=== PATIENT | female | born 1970 | race Caucasian/White ===

== ENCOUNTER 2016-11-22 09:50 | Inpatient (IN) | payer BC, OTHER ==
[~2016-11-22] VITALS: Ht 157.5 cm; Wt 58.1 kg
--- NOTE | 2016-11-22 09:55 | NUR ---
AAOX3, BIB FAMILY C/O MIDSTERNAL CP, SOB SINCE LAST NIGHT, WORSE DURING INHALATION. SKIN IS WARM AND DRY. RESP IS EVEN AND UNLABORED WITH NAD NOTED. PLACED ON THE MONITOR AND HOSPITAL GOWN. DR OWEN AT BS FOR EVAL.
--- NOTE | 2016-11-22 10:32 | NUR ---
DUE MEDICATIONS GIVEN ORDERED
[2016-11-22 10:48] LABS: EOSINOPHILS % (AUTO) 0.3 % (0.0-6.0); HEMATOCRIT 35 % (33-45); HEMOGLOBIN 11.3 g/dL (11.5-14.8); LYMPHOCYTES # (AUTO) 1.4 /CMM (0.8-4.8); LYMPHOCYTES % (AUTO) 19.7 % (20.0-44.0); MEAN CORPUSCULAR HEMOGLOBIN 28 PG (26.0-33.0); MEAN CORPUSCULAR HGB CONC 33 g/dl (31.0-36.0); MEAN CORPUSCULAR VOLUME 84 fL (82-100); MONOCYTES # (AUTO) 0.8 /CMM (0.1-1.30); MONOCYTES % (AUTO) 10.9 % (2.0-12.0); NEUTROPHILS # (AUTO) 4.9 /CMM (1.8-8.9); NEUTROPHILS % (AUTO) 69.1 % (43.0-81.0); PLATELET COUNT (AUTO) 166 /CMM (150-450); RED BLOOD CELL COUNT(AUTO) 4.12 MIL/uL (4.0-5.2); WHITE BLOOD COUNT (AUTO) 7.1 K/uL (4.3-11.0)
[2016-11-22 10:57] LABS: CALCIUM, SERUM 8.4 mg/dL (8.5-10.1); CARBON DIOXIDE 27 mmol/L (21-32); CHLORIDE 101 mmol/L (98-107); CREATININE 0.4 mg/dL (0.6-1.3); GLUCOSE 101 mg/dL (74-106); POTASSIUM 4.1 mmol/L (3.5-5.1); SODIUM SERUM 136 mmol/L (136-145); UREA NITROGEN, BLOOD 12 mg/dL (7-18)
[2016-11-22 11:09] LABS: ALANINE AMINOTRANSFERASE 25 U/L (12-78); ALBUMIN 3.1 g/dL (3.4-5.0); ALKALINE PHOSPHATASE 216 U/L (46-116); ASPARTATE AMINOTRANSFERASE 19 U/L (15-37); B-TYPE NATRIURETIC PEPTIDE 1657 PG/ML (0-125); BILIRUBIN,DIRECT 0.2 mg/dL (0.0-0.2); BILIRUBIN,TOTAL 2.6 mg/dL (0.2-1.0); TOTAL PROTEIN, SERUM 6.5 g/dL (6.4-8.2)
[2016-11-22 11:10] LABS: LIPASE 54 U/L (73-393)
[2016-11-22 11:11] LABS: TROPONIN I < 0.017 ng/mL (0.00-0.056)
[2016-11-22 11:21] LABS: D-DIMER 0.72 mg/L(FEU (0.17-0.50); INR 1.06 (0.87-1.13); PROTHROMBIN TIME 11.4 SECS (9.5-12.7)
[2016-11-22] MEDS ORDERED: RIVA10TA PO (11:24)
[2016-11-22 11:31] LABS: THYROID STIMULATING HORMONE < 0.007 uIU/mL (0.358-3.74)
--- NOTE | 2016-11-22 13:03 | NUR ---
SANDY EMMANUELLE AT
--- NOTE | 2016-11-22 13:09 | NUR ---
REPORT GIVEN TO ASHLEIGH URBAN FOR AIDEN
--- NOTE | 2016-11-22 13:18 | NUR ---
PATIENT WAS TRANSPORTED TO [facility]. [facility]
--- NOTE | 2016-11-22 13:30 | NUR ---
RN NOTE RN RECEIVED PATIENT IN STABLE CONDITION NO COMPLAINS OF CHEST PAIN AT THIS TIME HOWEVER PATIENT STATES PRESSURE IN MEDIAL CHEST AT THIS TIME. PATIENT AMBULATES TO THE BED FROM [facility] WITHOUT DISTRESS, PATIENT PLACED ON TELE MONITORING , HR ELEVATED AND IRRGULAR A-FIB. PATIENT WILL CONTINUE TO BE MONITORED
--- NOTE | 2016-11-22 15:37 | NUR ---
PATIENT HR SUSTAINING AFIB 130,C/O CHEST PAIN,PRN MORPHINE GIVEN IVP,LOPRESSOR IVP GIVEN,DR. BURGOS NOTIFIED AND UPGRADED PATIENT TO BETHANY.WILL CONTINUE TO MONITOR.SBP 119 .
[2016-11-22 15:41] VITALS: BP 119/63
--- NOTE | 2016-11-22 16:34 | NUR ---
RN NOTE GIVEN ALL ORDERED MEDICATION PER MD ALESHIA MD SPOKE WITH PATIENT , MD ALSO STATES CARDIAC WILL CONTINUE TO FOLLOW THE PATIENT. PATIENT STATES PAIN HAS SUBSIDED AND SHE IS NOW RESTING COMFORTABLE. PARA PROFESSIONAL WILL CONTINUE TO FOLLOW
--- NOTE | 2016-11-22 18:18 | NUR ---
RN NOTE RN SPOKE WITH MD NARVAEZ IN REGARDS TO PATIENT A-FIB AND UNCONTROLLED HR , MD NARVAEZ ADVISED TO START PATIENT ON METOPROLOL( WHICH PATIENT HAS BEGAN PER DR. MONK ORDERS) AND CONTINUE TO MONITOR, RN ADVISED MD THAT PATIENT STATES SHE STOPPED TAKING MEDICATION A"COUPLE OF MONTHS AGO DUE TO HER NOT KNOWING IT WAS SOMETHING SHE WOULD NEED TO CONTINUE TAKING" NURSING STAFF ADVISED TO CONTINUE TO MONITOR.
--- NOTE | 2016-11-22 18:28 | NUR ---
BETHANY RN CLOSING NOTE PATIENT HAS BEEN CONTINUOUSLY READING A-FIB THROUGHOUT THE SHIFT CHARGE NURSE NOTIFIED , DR. MONK NOTIFIED AND ALSO DR. NARVAEZ NOTIFIED , PATIENT HOWEVER NO LONGER EXPERIENCING CHEST PAIN AT THIS TIME , HR STILL ELEVATED , PATIENT B/P STABLE AND WITH IN NORMAL LIMITS. PATIENT UP EATING DINNER IN THE BED AND STATES THAT HER DAUGHTER WILL BE COMING TO BRING ALL OF HER HOME MEDICATION AT 8-M , CONTINUED CARE WILL BE GIVEN AND CONTINUED MONITORING IV L AC SL. NO ISSUES PRESENT. RN WILL ENDORSED CARE TO THE NEXT SHIFT
--- NOTE | 2016-11-22 19:30 | NUR ---
RN INITIAL NOTES RECEIVED PATIENT IN BED, AWAKE, ALERT AND ORIENTED X4. BREATHING EVEN AND NONLABORED, ON 2L VIA NC, FREE FROM ANY S/S OF RESPIRATORY DISTRESS. PATIENT ON TELEMETRY MONITORING, REVEALING UNCONTROLLED AFIB, RANGING FROM 95-145 BPM. LEFT AC #20 PATENT AND INTACT, FLUSHED WITH NS, FREE FROM ANY S/S OF INFILTRATION OR PHLEBITIS. PLAN OF CARE DISCUSSED WITH THE PATIENT, WHO VERBALIZES UNDERSTANDING AT THIS TIME, BUT MAY NEED REINFORCEMENT TEACHING. WILL PROVIDE TEACHING NEEDED THROUGHOUT SHIFT. CALL LIGHT LEFT WITHIN EASY REACH, BED IN LOWEST AND LOCKED POSITION. WILL CONTINUE TO CLOSELY MONITOR
[2016-11-22 20:00] VITALS: BP 106/79
--- NOTE | 2016-11-22 20:00 | NUR ---
RN NOTES PATIENT TEACHING. EXPLAINED IN DETAIL REGARDING THE NEED TO ACCURATELY MEASURE URINE OUTPUT. PATIENT INSTRUCTED TO URINATE IN HAT TO COLLECT URINE. PATIENT VERBALIZES UNDERSTANDING OF VERBAL DIRECTIONS/INSTRUCTIONS
--- NOTE | 2016-11-22 21:00 | NUR ---
RN NOTES DURING HOURLY ROUNDING, PATIENT STATES "I FORGOT TO PEE IN THE THING (MEASURING DEVICE)." TEACHING RENDERED REGARDING NEED FOR ADEQUATE INTAKE AND OUTPUT. PATIENT VERBALIZES UNDERSTANDING.
--- NOTE | 2016-11-22 22:03 | NUR ---
RN NOTES PATIENT VERBALIZING FEELINGS OF ANXIETY. PATIENT STATES "IM NERVOUS BEING IN THE HOSPITAL AND EVERYTHING THAT IS GOING ON." ENCOURAGED PATIENT TO VERBALIZE FEELINGS. PATIENT TEACHING RENDERED REGARDING HOW TO USE DEEP BREATHING TECHNIQUES TO HELP DECREASE ANXIETY. ALSO REASSURED PATIENT THAT SHE IS IN A SAFE PLACE. XANAX ADMINISTERED ORDERED. WILL CONTINUE TO CLOSELY MONITOR
[2016-11-23] VITALS: BP 107/66
[2016-11-23 04:00] VITALS: BP 123/62
--- NOTE | 2016-11-23 06:39 | NUR ---
RN CLOSING NOTES PATIENT SLEEPING IN BED AT THIS TIME. ON TELEMETRY MONITORING, PATIENT CONTINUES TO READ AFIB, UNCONTROLLED RATE, 105-130BPM. WILL ENDORSE THE PATIENT TO THE AM SHIFT NURSE FOR AIDEN
[2016-11-23 06:52] LABS: CALCIUM, SERUM 8.5 mg/dL (8.5-10.1); CREATININE 0.3 mg/dL (0.6-1.3); MONOCYTES # (AUTO) 1.2 /CMM (0.1-1.30); PLATELET COUNT (AUTO) 160 /CMM (150-450)
[2016-11-23 06:54] LABS: BASOPHILS % (AUTO) 0.3 % (0.0-2.0); EOSINOPHILS % (AUTO) 0.5 % (0.0-6.0); HEMATOCRIT 35 % (33-45); HEMOGLOBIN 11.4 g/dL (11.5-14.8); LYMPHOCYTES # (AUTO) 2.6 /CMM (0.8-4.8); LYMPHOCYTES % (AUTO) 28.5 % (20.0-44.0); MEAN CORPUSCULAR HEMOGLOBIN 27 PG (26.0-33.0); MEAN CORPUSCULAR HGB CONC 33 g/dl (31.0-36.0); MEAN CORPUSCULAR VOLUME 84 fL (82-100); MONOCYTES % (AUTO) 12.8 % (2.0-12.0); NEUTROPHILS # (AUTO) 5.2 /CMM (1.8-8.9); NEUTROPHILS % (AUTO) 57.9 % (43.0-81.0); RDW COEFFICIENT OF VARIATION 13.5 (11.5-15.0); RED BLOOD CELL COUNT(AUTO) 4.18 MIL/uL (4.0-5.2)
[2016-11-23] MEDS ORDERED: METO50TA3 PO (06:58)
[2016-11-23] MEDS ORDERED: METH5TAB6 PO (06:58)
[2016-11-23 06:59] LABS: ALBUMIN 2.8 g/dL (3.4-5.0); BILIRUBIN,DIRECT 0.4 mg/dL (0.0-0.2); BILIRUBIN,TOTAL 3.1 mg/dL (0.2-1.0); MAGNESIUM 1.7 mg/dL (1.8-2.4); PHOSPHORUS 3.4 mg/dL (2.5-4.9); TOTAL PROTEIN, SERUM 6.4 g/dL (6.4-8.2)
[2016-11-23 08:00] VITALS: BP 140/62
--- NOTE | 2016-11-23 11:15 | NUR ---
RN INITIAL NOTES RECEIVED PATIENT IN BED AT 840 AM REPORT GIVEN VIA RN JOB , PT SLEEPING BUT UPON INTRODUCTION PATIENT IS ALERT AND ORIENTED X4. BREATHING EVEN AND NONLABORED, ON ROOM AIR BUT HAS NC OPTIONAL FOR SOB , FREE FROM ANY S/S OF RESPIRATORY DISTRESS. PATIENT ON TELEMETRY MONITORING, CURRENTLY READING AFIB, RANGING FROM 110-135 BPM. PT HAS LEFT AC #20 G IV . IV IS PATENT AND INTACT, FLUSHED WITH NS, FREE FROM ANY S/S OF INFILTRATION OR SWELLING. PLAN OF CARE DISCUSSED WITH THE PATIENT,PATIENT VERBALIZES UNDERSTANDING AT THIS TIME, BUT MAY NEED REINFORCEMENT TEACHING DUE TO HER SEEMINGLY SLEEP APPEARANCE . RN WILL PROVIDE TEACHING THROUGHOUT THE DAY . PTS CALL LIGHT LEFT WITHIN EASY REACH, BED IN LOWEST AND LOCKED POSITION. 3 SIDE RAILS UP . NURSING STAFF WILL CONTINUE TO CLOSELY MONITOR
[2016-11-23 12:00] VITALS: BP 111/60
[2016-11-23 16:00] VITALS: BP 131/66
--- NOTE | 2016-11-23 18:24 | NUR ---
RN NOTE RN HAD DIFFICULTY WITH THE COMPUTER ON WHEELS AND MAKEUP ARTIST ASHLEY PLACED PLACED A SERVICE CALL IN FOR THE AM . PAIN MEDICATION ADMINISTERED PER PATIENT REQUEST . CHARGE NURSE NOTIFIED AND ACKNOWLEDGED ISSUE WITH THE SCANNING OF MEDS PAIN MEDICATION VERIFIED. VIA THE 5 RIGHTS FOR DRUG ADMINISTRATION. PATIENT STATED PAIN RELIEVED WHEN GIVEN MORPHINE 4MG. RN WILL CONTINUE TO FOLLOW
--- NOTE | 2016-11-23 19:30 | NUR ---
RN INITIAL NOTES RECEIVED PT AWAKE ON BED, A/O X4. ON ROOM AIR WITH NO S/S OF RESP DISTRESS. CURRENTLY UNCONTROLLED AFIB ON THE MONITOR, HR 150'S. PT COMPLAINS OF LEFT SHOULDER PAIN. PT IS CONTINENT AND AMBULATORY ON A STEADY GAIT. LEFT AC 20G WITH D5NS @ 125MLS/HR, FLUSHED AND PATENT, NO S/S OF INFILTRATION/INFECTION, DRESSING CDI. BED LOW AND LOCKED, SIDERAILS UP. WILL MONITOR
--- NOTE | 2016-11-23 19:57 | NUR ---
RN CLOSING NOTES PATIENT SLEEPING IN BED AT THIS TIME. PT IS STILL ON TELEMETRY MONITORING, PATIENT READING UNCONTROLLED AFIB, RATE, 90-155BPM. THROUGHOUT THE DAY PATIENT REQUESTED PAIN MEDICATION RN ENDORSED THE PATIENT TO THE PM SHIFT NURSE FOR CONTINUATION OF CARE. PATIENT B/P STABLE AND PATIENT VERBLIZED DECREASED IN CHEST PAIN
[2016-11-23 20:00] VITALS: BP 156/85
--- NOTE | 2016-11-23 23:12 | NUR ---
RN NOTES PULLED WRONG MEDICATION(METOPROLOL SUCCINATE) FROM [facility] [employer] [facility]. ASKED PATIENT ASSISTANT FOR OVERRIDE TO GET METOPROLOL TARTRATE
[2016-11-24] VITALS: BP 124/72
--- NOTE | 2016-11-24 | NUR ---
RN NOTES CALLED ON-CALL DR LEDESMA TO NOTIFY HIM THAT PATIENT'S HR IS SUSTAINING @ 160-170'S. CURRENT BLOOD PRESSURES OF 131/71 AND 124/70. LOPRESSOR 5MG IVP HAD BEEN GIVEN BUT NO CHANGE IN HR HAS BEEN SEEN. MD ORDERED FOR 0.5MG DIGOXIN IVP TO BE GIVEN, NOW. IF HR IS STILL > 110, MAY GIVE ANOTHER DOSE OF 0.5MG DIGOXIN 6HRS AFTER THE FIRST DOSE. WILL INITIATE ORDER
[2016-11-24 04:00] VITALS: BP 122/78
--- NOTE | 2016-11-24 05:31 | NUR ---
RN NOTES DID NOT ADMINISTER 2ND DOSE OF DIGOXIN 0.5MG IV BECAUSE CURRENT HR IS 96.
--- NOTE | 2016-11-24 06:20 | NUR ---
RN CLOSING NOTES PT REMAINS STABLE OF THE MOMENT. CURRENTLY STILL AFIB ON THE MONITOR, BUT WITH HR 80-110'S. ALL DUE MEDS GIVEN, AM CARE PROVIDED. WILL ENDORSE AIDEN TO AM RN
[2016-11-24 07:41] LABS: APPEARANCE,URINE CLEAR (CLEAR); BILIRUBIN,URINE NEGATIVE (NEGATIVE); BLOOD, URINE NEGATIVE Ery/uL (NEGATIVE); COLOR,URINE YELLOW (YELLOW); KETONES,URINE NEGATIVE (NEGATIVE); LEUKOCYTE ESTERASE ,URINE TRACE (NEGATIVE); NITRITE, URINE NEGATIVE (NEGATIVE); PROTEIN,URINE NEGATIVE (NEGATIVE); UGLUCOSE NEGATIVE (NEGATIVE); UROBILINOGEN,URINE 0.2 EU/dL (0.2)
[2016-11-24 08:00] VITALS: BP 110/65
[2016-11-24 08:25] LABS: BACTERIA,URINE Few /HPF (None Seen); MUCUS,URINE Few /LPF (None Seen); RBC,URINE 0-2 /HPF (0-2)
[2016-11-24 08:38] LABS: EOSINOPHILS # (AUTO) 0.1 /CMM (0.0-0.7); EOSINOPHILS % (AUTO) 0.9 % (0.0-6.0); HEMATOCRIT 32 % (33-45); HEMOGLOBIN 10.5 g/dL (11.5-14.8); LYMPHOCYTES # (AUTO) 0.9 /CMM (0.8-4.8); LYMPHOCYTES % (AUTO) 15.6 % (20.0-44.0); MEAN CORPUSCULAR HEMOGLOBIN 28 PG (26.0-33.0); MEAN CORPUSCULAR HGB CONC 33 g/dl (31.0-36.0); MEAN CORPUSCULAR VOLUME 84 fL (82-100); MONOCYTES # (AUTO) 0.9 /CMM (0.1-1.30); NEUTROPHILS # (AUTO) 3.9 /CMM (1.8-8.9); NEUTROPHILS % (AUTO) 67.5 % (43.0-81.0); PLATELET COUNT (AUTO) 135 /CMM (150-450); RDW COEFFICIENT OF VARIATION 13.6 (11.5-15.0); RED BLOOD CELL COUNT(AUTO) 3.81 MIL/uL (4.0-5.2); WHITE BLOOD COUNT (AUTO) 5.8 K/uL (4.3-11.0)
[2016-11-24 09:10] LABS: CALCIUM, SERUM 8.4 mg/dL (8.5-10.1); CREATININE 0.4 mg/dL (0.6-1.3); POTASSIUM 3.5 mmol/L (3.5-5.1)
[2016-11-24 09:16] LABS: ALBUMIN 2.2 g/dL (3.4-5.0); BILIRUBIN,TOTAL 2.9 mg/dL (0.2-1.0); MAGNESIUM 1.8 mg/dL (1.8-2.4); TOTAL PROTEIN, SERUM 5.9 g/dL (6.4-8.2)
[2016-11-24 09:37] LABS: EOSINOPHILS % (MANUAL) 1 % (0-4); LYMPHOCYTES % (MANUAL) 15 % (16-48); MONOCYTES % (MANUAL) 9 % (0-11.0); NEUTROPHILS % (MANUAL) 75 (42-76)
[2016-11-24 12:00] VITALS: BP 131/81
[2016-11-24 16:00] VITALS: BP 125/83
--- NOTE | 2016-11-24 18:45 | NUR ---
RN NOTES- PT C/O ACHING BACK PAIN, PREFERS MORPHINE 4 MG IV INSTEAD OF NORCO PO. WILL ADMINISTER MED. WILL CONTINUE TO MONITOR.
[2016-11-24 20:00] VITALS: BP_SYST 120; BP_SYST 124; BP_DIAS 48; BP_DIAS 65
--- NOTE | 2016-11-24 20:21 | NUR ---
RN NOTES. INITIAL ASSESSMENT. RECEIVED THE PT REST ON THE BED. AWAKE, ALERT, FOLLOW COMMANDS. R[employer]ER [employer] SHOWING AFIB. RATE IS 110- 115 AT THIS TIME. OXYGEN 2L VIA NASAL CANNULA. SAT 98%. NO ACUTE DISTRESS NOTED. PT DENIES CHEST PAIN AT THIS TIME. IV RT FORE ARM 20G INTACT. IVF D5NS 125ML/H. IV SITE CLEAN AND DRY. NO REDNESS OR INFILTRATION NOTED. HOB ELEVATED. TURN AND REPOSITION PT INDEPENDENT.WILL CONTINUE TO MONITOR VITALS.
--- NOTE | 2016-11-24 22:32 | NUR ---
RN NOTE. PT HAS LOWER BACK PAIN SCALE 4/10. NORCO 5 -325 PO GIVEN PER MD ORDERED.
[2016-11-25] VITALS: BP_SYST 112; BP_SYST 115; BP_DIAS 55; BP_DIAS 67
[2016-11-25 04:00] VITALS: BP 110/60
[2016-11-25 06:36] LABS: BASOPHILS % (AUTO) 0.5 % (0.0-2.0); EOSINOPHILS # (AUTO) 0.2 /CMM (0.0-0.7); EOSINOPHILS % (AUTO) 3.7 % (0.0-6.0); HEMATOCRIT 30 % (33-45); HEMOGLOBIN 9.9 g/dL (11.5-14.8); LYMPHOCYTES % (AUTO) 36.4 % (20.0-44.0); MEAN CORPUSCULAR HEMOGLOBIN 28 PG (26.0-33.0); MEAN CORPUSCULAR HGB CONC 33 g/dl (31.0-36.0); MEAN CORPUSCULAR VOLUME 85 fL (82-100); MONOCYTES # (AUTO) 0.8 /CMM (0.1-1.30); MONOCYTES % (AUTO) 14.3 % (2.0-12.0); NEUTROPHILS # (AUTO) 2.4 /CMM (1.8-8.9); NEUTROPHILS % (AUTO) 45.1 % (43.0-81.0); PLATELET COUNT (AUTO) 142 /CMM (150-450); RDW COEFFICIENT OF VARIATION 13.4 (11.5-15.0); RED BLOOD CELL COUNT(AUTO) 3.49 MIL/uL (4.0-5.2); WHITE BLOOD COUNT (AUTO) 5.4 K/uL (4.3-11.0)
[2016-11-25 06:53] LABS: ALBUMIN 1.9 g/dL (3.4-5.0); BILIRUBIN,TOTAL 1.8 mg/dL (0.2-1.0); CALCIUM, SERUM 8.1 mg/dL (8.5-10.1); CREATININE 0.3 mg/dL (0.6-1.3); MAGNESIUM 1.7 mg/dL (1.8-2.4); PHOSPHORUS 3.2 mg/dL (2.5-4.9); POTASSIUM 3.6 mmol/L (3.5-5.1); TOTAL PROTEIN, SERUM 5.3 g/dL (6.4-8.2)
--- NOTE | 2016-11-25 07:10 | NUR ---
BETHANY RN NOTES RECEIVED PATIENT AOX4 , DENIES SOB AND DISCOMFORT AT THIS TIME , SPO2 OF 98% VIA RA , AFIB 110 ON TELE MONITOR . R FA # 20 PATENT AND INTACT WITH D5NS @ 125ML/HR INFUSING WELL , ALL NEEDS ATTENDED , BED ON LOW AND LOCKED POSITION , SIDE RAILS X2 ,CALL LIGHT WITHIN REACH , HON @ 35 , WILL CONTINUE TO MONITOR .
[2016-11-25 09:00] VITALS: BP 127/61
[2016-11-25 12:00] VITALS: BP 133/67
[2016-11-25 16:00] VITALS: BP 132/77
--- NOTE | 2016-11-25 19:10 | NUR ---
BETHANY RN OPENING NOTES RECEIVED REPORT FROM AM RN. PATIENT A/A/O X3-4, ABLE TO MAKE NEEDS KNOWN. BREATHING EVEN AND UNLABORED, ON O2 2L VIA NC, TOLERATING WELL. DENIES SOB OR DIFFICULTY BREATHING. ON TELE A-FIB, DENIES CHEST PAIN OR DISCOMFORT. RIGHT FOREARM IV #20 INTACT AND PATENT W/ DRESSING CDI, SALINE LOCK. DENIES ANY PAIN OR DISCOMFORT @ THIS TIME. SAFETY MEASURES IN PLACE W/ SIDE RAILS UP, BED LOCKED IN LOWEST POSITION, CALL LIGHT WITHIN REACH. WILL CONTINUE TO MONITOR.
--- NOTE | 2016-11-25 19:12 | NUR ---
BETHANY RN NOTES STOOL SAMPLE OBTAINED , LABELED AND SENT TO LAB.
[2016-11-25 20:00] VITALS: BP 122/57
[2016-11-26] VITALS: BP 115/66
[2016-11-26 04:00] VITALS: BP 114/62
[2016-11-26 06:52] LABS: BASOPHILS % (AUTO) 0.2 % (0.0-2.0); EOSINOPHILS # (AUTO) 0.3 /CMM (0.0-0.7); EOSINOPHILS % (AUTO) 6.2 % (0.0-6.0); HEMATOCRIT 29 % (33-45); HEMOGLOBIN 9.4 g/dL (11.5-14.8); LYMPHOCYTES # (AUTO) 1.7 /CMM (0.8-4.8); LYMPHOCYTES % (AUTO) 40.8 % (20.0-44.0); MEAN CORPUSCULAR HEMOGLOBIN 28 PG (26.0-33.0); MEAN CORPUSCULAR HGB CONC 33 g/dl (31.0-36.0); MEAN CORPUSCULAR VOLUME 84 fL (82-100); MONOCYTES # (AUTO) 0.5 /CMM (0.1-1.30); MONOCYTES % (AUTO) 12.8 % (2.0-12.0); NEUTROPHILS # (AUTO) 1.7 /CMM (1.8-8.9); PLATELET COUNT (AUTO) 153 /CMM (150-450); RDW COEFFICIENT OF VARIATION 13.1 (11.5-15.0); WHITE BLOOD COUNT (AUTO) 4.2 K/uL (4.3-11.0)
[2016-11-26 07:38] LABS: CALCIUM, SERUM 8.1 mg/dL (8.5-10.1); CREATININE 0.3 mg/dL (0.6-1.3); MAGNESIUM 1.6 mg/dL (1.8-2.4); PHOSPHORUS 4.4 mg/dL (2.5-4.9); POTASSIUM 3.8 mmol/L (3.5-5.1)
[2016-11-26 08:00] VITALS: BP 126/53
--- NOTE | 2016-11-26 09:00 | NUR ---
DR. SOLANGE ARDON PT FOR DISCHARGE WITH INSTRUCTIONS TO FOLLOW UP IN ONE WEEK WITH HIS OFFICE FOR CONTINUITY OF CARE.
[2016-11-26] MEDS ORDERED: PROP40TA7 PO (10:24)
[2016-11-26] MEDS ORDERED: METH5TAB70 PO (10:24)
[2016-11-26] MEDS ORDERED: [UNRECOGNIZED DRUG - CODE] PO (10:24)
[2016-11-26 12:21] VITALS: BP 129/78
--- NOTE | 2016-11-26 13:40 | NUR ---
SHARAN KENT WRITES RX FOR PT'S DISCHARGE. DISCHARGE INSTRUCTIONS GIVEN TO THE PATIENT INCLUDING MEDICATION EDUCATION AND ITS IMPORTANCE TO ADHERE TO THE MEDICATIONS ESPECIALLY XARELTO. DISCHARGE INSTRUCTIONS GIVEN TO THE PT INCLUDING DR. VAUGHAN OFFICE NUMBER AND LOCATION (HIGHLIGHTED IN THE PAPERWORK). I EXPLAINED TO HER PROTOCOLS REGARDING SKIN ASSESSMENT PICTURES ON DISCHARGE BUT SHE REFUSED STATING THAT SHE DOES NOT WANT ANYMORE PICTURES TAKEN. HER IS COMING AROUND 5PM AND WILL TAKE HER HOME, WILL PROVIDE DISCHARGE EDUCATION FOR HER WELL. WRITTEN PRESCRIPTIONS GIVEN TO HER ON THE FRONT PAGE OF HER DISCHARGE PAPERWORK.
--- NOTE | 2016-11-26 17:21 | NUR ---
DC IVF CATHETER INTACT. REMOVED ID BANDS, PT STILL REFUSED FOR SKIN ASSESSMENT PICTURES, SHE STATES SHE ALREADY GOT DRESSED AND IS READY TO GO. WENT OVER DISCHARGE PAPERWORK WITH THE WHO IS AT BEDSIDE AND IWLL TAKE HER HOME. INSTRUCTED TO FOLLOW UP WITH DR. VAUGHAN OFFICE IN ONE WEEK. NUMBER HIGHLIGHTED IN PAPERWORK SEE PREVIOUS NOTE.
== END 2016-11-26 17:00 | disposition home or self-care (01) | DRG 308 ==
LOC: ER 09:51 → TELE1 12:36 → TELE-TD 15:38 → TELE1 11-23 08:35 → TELE-TD 11-24 12:35 → MEDSG1 11-26 09:43
PROVIDERS: ADMIT Internal Medicine; ATTEND Internal Medicine
DX: I48.91 Unspecified atrial fibrillation (principal); E05.91 Thyrotoxicosis, unspecified with thyrotoxic crisis or storm; E44.1 Mild protein-calorie malnutrition; E83.42 Hypomagnesemia; I95.9 Hypotension, unspecified; E78.5 Hyperlipidemia, unspecified; J45.909 Unspecified asthma, uncomplicated; K21.9 Gastro-esophageal reflux disease without esophagitis; E80.6 Other disorders of bilirubin metabolism; R07.9 Chest pain, unspecified; Z68.23 Body mass index [BMI] 23.0-23.9, adult; R07.81 Pleurodynia
CPT/HCPCS: 36415; 71010-TC; 76705-TC; 80048-TC; 80053-TC; 80061-TC; 80076-TC; 81000-TC; 82272-TC; 82728-TC; 83540-TC; 83605-TC; 83690-TC; 83735-TC; 83880; 84100-TC; 84439-TC; 84443-TC; 84480; 84484-TC; 84703-TC; 85025-TC; 85378-TC; 85730-TC; 87040-TC; 87081-TC; 87086-TC; 93307-TC; A4606; C9113; J1160; J1650; J1800; J2270; J2405; J3475; J3490; J7030; J7042; J7050; J7070; Z7610

== ENCOUNTER 2019-02-23 01:44 | Inpatient (IN) | payer BC, MEDICAID ==
[~2019-02-23] VITALS: Ht 157.5 cm; Wt 54.4 kg
[2019-02-23] VITALS (11 sets, daily range): BP systolic 92–125; BP diastolic 53–66
[~2019-02-23 01:44] MED LIST: METH5TAB70 PO; PROP40TA7 PO; [UNRECOGNIZED DRUG - CODE] PO
--- NOTE | 2019-02-23 01:45 | NUR ---
Cesar damon in [facility] - 02/23/19 at 0209 by TARUN FAXED CLINICAL INFORMATION TO GIAN RITTER WAITING FOR CALL BACK WITH TRANSFER INFORMATION
--- NOTE | 2019-02-23 02:04 | NUR ---
BIBSELF C/O LOWER ABDOMINAL PAIN X2 DAYS. -FEVER, +NAUSEA/VOMITTING, LAS BM IN AM, LOOSE STOOL. TO ER BED 3 VSS.
[2019-02-23 02:24] LABS: BASOPHILS % (AUTO) 0.1 % (0.0-2.0); HEMATOCRIT 37 % (33-45); HEMOGLOBIN 12.3 g/dL (11.5-14.8); LYMPHOCYTES # (AUTO) 0.7 /CMM (0.8-4.8); LYMPHOCYTES % (AUTO) 5.4 % (20.0-44.0); MEAN CORPUSCULAR HGB CONC 33 g/dl (31.0-36.0); MEAN CORPUSCULAR VOLUME 85 fL (82-100); MONOCYTES % (AUTO) 7.7 % (2.0-12.0); NEUTROPHILS % (AUTO) 86.8 % (43.0-81.0); PLATELET COUNT (AUTO) 203 /CMM (150-450); RED BLOOD CELL COUNT(AUTO) 4.41 MIL/uL (4.0-5.2); WHITE BLOOD COUNT (AUTO) 12.6 K/uL (4.3-11.0)
[2019-02-23 02:29] LABS: CALCIUM, SERUM 8.9 mg/dL (8.5-10.1); CARBON DIOXIDE 28 mmol/L (21-32); CHLORIDE 101 mmol/L (98-107); CREATININE 0.6 mg/dL (0.6-1.3); GLUCOSE 133 mg/dL (74-106); POTASSIUM 3.8 mmol/L (3.5-5.1); SODIUM SERUM 139 mmol/L (136-145); UREA NITROGEN, BLOOD 10 mg/dL (7-18)
[2019-02-23] MEDS ORDERED: IV NS 0.9% 1,000 ML BAG IV ONE (02:30)
[2019-02-23] MEDS ORDERED: MORPHINE SULFATE INJ 2 MG/ML DISP.SYRIN IV ONE ×2 (02:30→03:30)
[2019-02-23] MEDS ORDERED: ONDANSETRON HCL/PF 4 MG/2 ML VIAL IVP ONE (02:30)
[2019-02-23 02:35] LABS: ALANINE AMINOTRANSFERASE 17 U/L (12-78); ALBUMIN 3.4 g/dL (3.4-5.0); ALKALINE PHOSPHATASE 150 U/L (46-116); ASPARTATE AMINOTRANSFERASE 10 U/L (15-37); BILIRUBIN,DIRECT 0.3 mg/dL (0.0-0.2); BILIRUBIN,TOTAL 1.7 mg/dL (0.2-1.0); LIPASE 59 U/L (73-393); TOTAL PROTEIN, SERUM 7.3 g/dL (6.4-8.2)
[2019-02-23] MEDS ORDERED: MORPHINE SULFATE INJ 4 MG/ML DISP.SYRIN ONE (03:24)
[2019-02-23] MEDS ORDERED: PIPERACILLIN /TAZOBACTAM 3.375 G in IV D5W 50 ML IV ONE (03:30)
[2019-02-23] MEDS ORDERED: PIPERACILLIN /TAZOBACTAM 3.375 G VIAL IV ONE (04:02)
--- NOTE | 2019-02-23 04:58 | NUR ---
ATTEMPTED TO CONTACT DR. MCKNIGHT, LEFT MESSAGE
--- NOTE | 2019-02-23 05:03 | NUR ---
PT IN BED, SLEEPING, NO APPARENT PAIN OR DISCOMFORT, WILL CONTINUE TO MONITOR
--- NOTE | 2019-02-23 05:22 | NUR ---
BED 312-2 MS
[2019-02-23 05:36] LABS: APPEARANCE,URINE Clear (CLEAR); BILIRUBIN,URINE Negative (NEGATIVE); BLOOD, URINE Trace-intact Ery/uL (NEGATIVE); COLOR,URINE Yellow (YELLOW); KETONES,URINE Negative (NEGATIVE); LEUKOCYTE ESTERASE ,URINE Negative (NEGATIVE); NITRITE, URINE Negative (NEGATIVE); PH,URINE 6.5 (5.0-8.0); PROTEIN,URINE Negative (NEGATIVE); UGLUCOSE Negative (NEGATIVE); UROBILINOGEN,URINE 0.2 EU/dL (0.2)
[2019-02-23 05:47] LABS: BACTERIA,URINE Few /HPF (None Seen); SQUAMOUS EPITHELIAL CELL,UR Few /HPF (None Seen)
[2019-02-23] MEDS ORDERED: MAG HYDROX/AL HYDROX/SIMETH 30 ML UDC PO PRN (06:00)
[2019-02-23] MEDS ORDERED: ONDANSETRON HCL/PF 4 MG/2 ML VIAL IVP PRN (06:00)
[2019-02-23] MEDS ORDERED: MORPHINE SULFATE INJ 2 MG/ML DISP.SYRIN IV PRN (06:00)
[2019-02-23] MEDS ORDERED: MAGNESIUM HYDROXIDE 30 ML UDC PO PRN (06:00)
[2019-02-23] MEDS ORDERED: HYDROCODONE/APAP 5/325MG 1 EACH TABLET PO PRN (06:00)
[2019-02-23] MEDS ORDERED: Z GUARD REMEDY 2 OZ OINT TP PRN (06:00)
--- NOTE | 2019-02-23 06:18 | NUR ---
transported pt to room 312-2
--- NOTE | 2019-02-23 06:20 | NUR ---
RN medsurg admission notes Received Pt from ER nurse ASHLEIGH Rodriguez. Pt arrived at the unit by a gurney with ACLS protocol. Pt is alert and orientedX4. Respiration is normal. No SOB. No S/S of distress noted. IV sites at LAC#20 is clean, intact, patent and flush without resistance. Admission orders received from Dr. Morgan. Skin assessment is done and performed. Skin is intact. Pt's belonging was checked by HO Funes. Reorient Pt to the room and the use of call light. Instructed to call. Safety precautions is maintained. Bed at low position, brakes locked, side rails upX3 and call light is within reach. Will endorse to morning nurse for AIDEN.
--- NOTE | 2019-02-23 06:48 | NUR ---
RN brandon notes Pt is complaining of pain in her abdomen. Administered morphine sulfate inj 2 mg/1 ml IV push as ordered for pain on the abdomen. Instructed to call. VS is stable. Safety precautions is maintained. Will continue to monitor.
--- NOTE | 2019-02-23 06:49 | NUR ---
RN medsur notes Dr. Rushing at the bedside.
--- NOTE | 2019-02-23 06:50 | NUR ---
RN medsurg closing notes Pt is resting in bed comfortably. Respiration is normal. No SOB. No S/S of distress noted. IV sites at LAC is clean, intact, patent and infusing well NS @ 100ml/hr. kept Pt clean, dry, warm and comfortable. Instructed to call. Safety precautions is maintained. Bed at low position, brakes locked, side rails upX3 and call light is within reach. Will endorse to morning nurse for AIDEN.
[2019-02-23] MEDS: IV NS 0.9% 1,000 ML IV PRN (06:54)
--- NOTE | 2019-02-23 08:40 | NUR ---
M/S RN NOTES PATIENT AWAKE IN BED WITH FAMILY AT BEDSIDE. PATIENT ALERT AND ORIENTED X4. NO RESPIRATORY DISTRESS. PATIENT C/O PAIN BUT TOLERABLE AT THIS TIME. NO C/O N/V. PATIENT'S IV SITE ON THE LAC #20G INTACT AND PATENT NS AT 100ML/HR. SKIN WARM TO TOUCH. PATIENT HAVING SURGERY TODAY, ALL CONSENTS SIGNED AND CHECKLIST DONE. BED ON LOWEST LOCKED POSITION, CALL LIGHT WITHIN REACH. WILL CONTINUE TO MONITOR.
[2019-02-23] MEDS ORDERED: BUPIVACAINE MPF 0.5% W/EPI INJ 30 ML VIAL ONE (09:55)
[2019-02-23] MEDS ORDERED: ANESTHESIA TRAY IN PYXIS 1 EA TRAY MC ONE (09:55)
[2019-02-23 09:57] LABS: THYROID STIMULATING HORMONE < 0.007 uIU/mL (0.358-3.74)
--- NOTE | 2019-02-23 10:50 | NUR ---
M/S RN NOTES PATIENT WENT DOWN FOR SURGERY. PATIENT LEFT IN NO ACUTE DISTRESS. FAMILY WILL WAIT IN THE WAITING ROOM.
[2019-02-23] MEDS ORDERED: FENTANYL PF 100MCG/2ML AMPUL ONE (12:41)
--- NOTE | 2019-02-23 13:10 | NUR ---
M/S RN NOTES PATIENT CAME BACK FROM SURGERY. PATIENT IN NO RESPIRATORY DISTRESS. PATIENT WITH NO C/O PAIN AT THIS TIME. PATIENT'S V/S BP96/53, HR95, RR18, T98.9, O2 97%. PATIENT'S DRESSING C/D/I. PATIENT'S IV ACCESS SITE INTACT AND PATENT, NS INFUSING AT 100ML/HR. POST OP ORDERS CARRIED OUT. WILL CONTINUE TO MONITOR PATIENT.
[2019-02-23] MEDS: METHIMAZOLE (5MG) 5 MG TABLET PO SCH ×2 (13:21→20:50)
[2019-02-23] MEDS: PIPERACILLIN /TAZOBACTAM 3.375 G in IV D5W 100 ML IV SCH ×2 (13:22→20:52)
[2019-02-23] MEDS ORDERED: ZOLPIDEM TARTRATE 5 MG TABLET PO PRN (13:30)
[2019-02-23] MEDS: MORPHINE SULFATE INJ 2 MG/ML DISP.SYRIN IV PRN ×3 (15:32→23:03)
--- NOTE | 2019-02-23 19:15 | NUR ---
M/S RN NOTES PATIENT RESTING IN BED, NO RESPIRATORY DISTRESS, ABDOMINAL PAIN TOLERABLE AT THIS TIME. PATIENT'S IV NS INFUSING AT 100ML/HR, INTACT AND PATENT. SKIN WARM TO TOUCH. BED ON LOWEST LOCKED POSITION, CALL LIGHT WITHIN REACH. WILL ENDORSE TO ONCOMING NURSE.
--- NOTE | 2019-02-23 19:24 | NUR ---
RN OPENING NOTES 1923 RECEIVED PATIENT AWAKE IN BED. PATIENT A/O X 4, ABLE TO STATE NEEDS CLEARLY. FAMILY AT BED SIDE. NO SIGNS OF RESPIRATORY DISTRESS. PATIENT DENIES SHORTNESS OF BREATH AT THIS TIME. NO C/O PAIN AT THIS TIME, PATIENT STATES PAIN IS TOLERABLE AND WILL PRESS CALL LIGHT IF PAIN MEDICATION IS NEEDED. IV SITE LAC INTACT AND PATENT, IVF INFUSING, NO INFECTION/INFILTRATION NOTED. SAFETY PRECAUTIONS IMPLEMENTED; CALL LIGHT WITHIN REACH, BED LOWEST POSITION, BED LOCKED, BILATERAL UPPER SIDE RAILS UP. INSTRUCTED PATIENT TO PRESS THE CALL IF ASSISTANCE OR PAIN MEDICATION IS NEEDED. WILL CONTINUE TO MONITOR.
[2019-02-23] MEDS: ACETAMINOPHEN 325 MG TABLET PO PRN (22:37)
[2019-02-24] MEDS: PIPERACILLIN /TAZOBACTAM 3.375 G in IV D5W 100 ML IV SCH ×3 (03:53→20:21)
[2019-02-24] MEDS: IV NS 0.9% 1,000 ML IV PRN (03:54)
[2019-02-24] MEDS: METHIMAZOLE (5MG) 5 MG TABLET PO SCH ×3 (04:09→20:21)
[2019-02-24 04:44] VITALS: BP 107/56
[2019-02-24] MEDS: MORPHINE SULFATE INJ 2 MG/ML DISP.SYRIN IV PRN ×6 (04:45→20:49)
[2019-02-24 06:52] LABS: BASOPHILS % (AUTO) 0.2 % (0.0-2.0); EOSINOPHILS % (AUTO) 0.1 % (0.0-6.0); HEMATOCRIT 33 % (33-45); HEMOGLOBIN 11.1 g/dL (11.5-14.8); LYMPHOCYTES # (AUTO) 0.7 /CMM (0.8-4.8); LYMPHOCYTES % (AUTO) 9.4 % (20.0-44.0); MEAN CORPUSCULAR HGB CONC 34 g/dl (31.0-36.0); MEAN CORPUSCULAR VOLUME 85 fL (82-100); MONOCYTES # (AUTO) 0.6 /CMM (0.1-1.30); MONOCYTES % (AUTO) 7.4 % (2.0-12.0); NEUTROPHILS # (AUTO) 6.5 /CMM (1.8-8.9); NEUTROPHILS % (AUTO) 82.9 % (43.0-81.0); PLATELET COUNT (AUTO) 153 /CMM (150-450); WHITE BLOOD COUNT (AUTO) 7.8 K/uL (4.3-11.0)
--- NOTE | 2019-02-24 06:57 | NUR ---
RN CLOSING NOTES PATIENT IS CURRENTLY RESTING IN BED, EASILY AROUSABLE TO VOICE. NO SIGNS OF RESPIRATORY DISTRESS, NO SHORTNESS OF BREATH NOTED. IV SITE REMAINS INTACT AND PATENT, IVF INFUSING WELL, INTACT AND PATENT, NO INFECTION/INFILTRATION NOTED. NO COMPLAINTS OF ABDOMINAL PAIN AT THIS TIME, PAIN MANAGED THROUGHOUT THE SHIFT. SAFETY PRECAUTIONS IMPLEMENTED; CALL LIGHT WITHIN REACH, BED LOCKED, BED LOWEST POSITION, BILATERAL UPPER SIDE RAILS UP. WILL CONTINUE TO MONITOR. WILL ENDORSE TO DAY SHIFT NURSE FOR CONTINUITY OF CARE.
[2019-02-24 07:32] LABS: ALBUMIN 2.3 g/dL (3.4-5.0); BILIRUBIN,DIRECT 0.5 mg/dL (0.0-0.2); CALCIUM, SERUM 8.1 mg/dL (8.5-10.1); CREATININE 0.6 mg/dL (0.6-1.3); MAGNESIUM 1.6 mg/dL (1.8-2.4); PHOSPHORUS 2.9 mg/dL (2.5-4.9); POTASSIUM 3.2 mmol/L (3.5-5.1); TOTAL PROTEIN, SERUM 5.8 g/dL (6.4-8.2)
[2019-02-24 08:00] VITALS: BP 105/64
[2019-02-24] MEDS: POTASSIUM CHLORIDE 20 MEQ TAB.PRT.SR PO SCH ×2 (11:50→12:49)
[2019-02-24] MEDS: Magnesium 1GM/D5W 100ML PREMIX 100 ML IV SCH ×2 (11:50→12:50)
[2019-02-24 16:00] VITALS: BP 109/56
--- NOTE | 2019-02-24 19:30 | NUR ---
MS RN OPENING NOTE RECEIVED PATIENT IN BED. A/O X4. TOLERATING ROOM AIR. RESPIRATIONS ARE EVEN AND UNLABORED. NO S/S SOB NOTED. DENIES PAIN AT THIS TIME. IN NO APPARENT DISTRESS. IV ACCESS IN LAC #20 RUNNING NS @100ML/HR. BED IS LOW AND LOCKED, SIDE RAILS UP X2, HOB ELEVATED IN SEMI FOWLERS. CALL LIGHT WITHIN REACH. FAMILY AT BEDSIDE. WILL CONTINUE TO MONITOR.
[2019-02-24 20:00] VITALS: BP 121/60
[2019-02-24] MEDS: ACETAMINOPHEN 325 MG TABLET PO PRN (20:21)
--- NOTE | 2019-02-24 20:21 | NUR ---
MS RN NOTE ADMINISTERED PRN TYLENOL 650MG FOR TEMP 100.6. WILL CONTINUE TO MONITOR.
--- NOTE | 2019-02-24 20:49 | NUR ---
MS RN NOTE ADMINISTERED PRN MORPHINE 2MG FOR PAIN 10/10 IN ABDOMEN. WILL CONTINUE TO MONITOR.
--- NOTE | 2019-02-25 00:01 | NUR ---
MS RN NOTE REMOVED MORPHINE 2MG FROM OMNI CELL. WASTED 1MG WITH ANABELLA SOTELO. CHECKED PATIENTS BP AGAIN. BP 107/59 HR 88. PATIENT BP HAD SUDDEN DECREASE, NOT COMFORTABLE ADMINISTERING PRN MORPHINE. WASTED ADDITIONAL 1MG WITH CHARGE NURSE KORIN SOTELO. WASTE WITNESS BY KORIN SOTELO INTO RX DESTROYER.
[2019-02-25] MEDS: MORPHINE SULFATE INJ 2 MG/ML DISP.SYRIN IV PRN ×2 (03:59→08:42)
[2019-02-25] MEDS: PIPERACILLIN /TAZOBACTAM 3.375 G in IV D5W 100 ML IV SCH ×2 (03:59→12:45)
[2019-02-25] MEDS: METHIMAZOLE (5MG) 5 MG TABLET PO SCH ×2 (04:01→14:00)
--- NOTE | 2019-02-25 04:04 | NUR ---
MS RN NOTE ADMINISTERED PRN MORPHINE 2MG FOR PAIN 8/10 IN ABDOMEN WILL CONTINUE TO MONITOR.
--- NOTE | 2019-02-25 06:33 | NUR ---
MS RN CLOSING NOTE PATIENT IN BED. A/O X4. REMAINS TOLERATING ROOM AIR. RESPIRATIONS ARE EVEN AND UNLABORED. NO SOB NOTED THROUGHOUT SHIFT. PAIN MANAGED WITH MORPHINE 2 MG THROUGHOUT SHIFT. NO DISTRESS NOTED. IV ACCESS MAINTAINED IN LAC #20 RUNNING NS @100ML/HR. BED REMAINS LOW AND LOCKED, SIDE RAILS UP X2, HOB ELEVATED IN SEMI FOWLERS. CALL LIGHT WITHIN REACH. FAMILY REMAINS AT BEDSIDE. WILL ENDORSE TO NEXT SHIFT
[2019-02-25 06:42] LABS: CALCIUM, SERUM 8.6 mg/dL (8.5-10.1); CREATININE 0.5 mg/dL (0.6-1.3); MAGNESIUM 1.8 mg/dL (1.8-2.4); POTASSIUM 3.4 mmol/L (3.5-5.1)
[2019-02-25 06:46] LABS: EOSINOPHILS % (AUTO) 0.1 % (0.0-6.0); HEMATOCRIT 36 % (33-45); LYMPHOCYTES # (AUTO) 0.4 /CMM (0.8-4.8); LYMPHOCYTES % (AUTO) 4.4 % (20.0-44.0); MEAN CORPUSCULAR HGB CONC 33 g/dl (31.0-36.0); MEAN CORPUSCULAR VOLUME 85 fL (82-100); MONOCYTES # (AUTO) 0.6 /CMM (0.1-1.30); MONOCYTES % (AUTO) 6.2 % (2.0-12.0); NEUTROPHILS # (AUTO) 8.7 /CMM (1.8-8.9); NEUTROPHILS % (AUTO) 89.3 % (43.0-81.0); PLATELET COUNT (AUTO) 159 /CMM (150-450); RED BLOOD CELL COUNT(AUTO) 4.24 MIL/uL (4.0-5.2); WHITE BLOOD COUNT (AUTO) 9.7 K/uL (4.3-11.0)
--- NOTE | 2019-02-25 07:30 | NUR ---
M/S RN NOTES PATIENT RESTING, LYING IN BED. FAMILY AT BEDSIDE. NO RESPIRATORY DISTRESS, PAIN TOLERABLE AT THIS TIME. PATIENT'S IV ACCESS SITE, INTACT AND PATENT. SKIN WARM TO TOUCH, NO FEVER, NO N/V. PATIENT'S NEEDS ATTENDED. BED ON LOWEST LOCKED POSITION, CALL LIGHT WITHIN REACH. WILL CONTINUE TO MONITOR.
[2019-02-25 08:00] VITALS: BP 114/66
[2019-02-25] MEDS ORDERED: POTASSIUM CHLORIDE 20 MEQ TAB.PRT.SR PO ONE (09:00)
[2019-02-25] MEDS ORDERED: MORPHINE SULFATE INJ 2 MG/ML DISP.SYRIN IV PRN (10:30)
--- NOTE | 2019-02-25 14:15 | NUR ---
M/S RN NOTES PATIENT WALKED AROUND THE UNIT WITH DAUGHTER'S ASSIST. PATIENT ENCOURAGED TO USE INCENTIVE SPEROMETER X10 EVERY HOUR TOLERATED.
[2019-02-25 16:00] VITALS: BP 123/75
--- NOTE | 2019-02-25 17:30 | NUR ---
M/S RN NOTES PATIENT DISCHARGE IN STABLE CONDITION. PATIENT IN NO RESPIRATORY DISTRESS, NO C/O PAIN AT THIS TIME. SKIN WARM TO TOUCH. SKIN ASSESSED, NO SKIN BREAKDOWN. IV REMOVED AND APPLIED PRESSURE DRESSING. PATIENT GIVEN DISCHARGE INSTRUCTIONS, VERBALIZED UNDERSTANDING. PATIENT'S BELONGINGS ACCOUNTED FOR AND SIGNED. PATIENT'S NEEDS MET. PATIENT ESCORTED TO LOBBY, PATIENT LEFT WITH FAMILY IN PRIVATE CAR.
== END 2019-02-25 17:30 | disposition home or self-care (01) | DRG 233 ==
LOC: ER 01:46 → MED 05:33
PROVIDERS: ADMIT Nurse Practitioner Acute Care; ATTEND Nurse Practitioner Acute Care
PROC: 0DTJ4ZZ Resection of Appendix, Percutaneous Endoscopic Approach (ICD-10-PCS; principal; 2019-02-23)
DX: K35.31 Acute appendicitis with localized peritonitis and gangrene, without perforation (principal); I48.91 Unspecified atrial fibrillation; K76.0 Fatty (change of) liver, not elsewhere classified; I10 Essential (primary) hypertension; J45.909 Unspecified asthma, uncomplicated; E78.5 Hyperlipidemia, unspecified; E05.90 Thyrotoxicosis, unspecified without thyrotoxic crisis or storm; Z91.19 Patient's noncompliance with other medical treatment and regimen; D72.829 Elevated white blood cell count, unspecified; K52.9 Noninfective gastroenteritis and colitis, unspecified; R74.0 Nonspecific elevation of levels of transaminase and lactic acid dehydrogenase [LDH]; R73.9 Hyperglycemia, unspecified; E80.6 Other disorders of bilirubin metabolism
CPT/HCPCS: 36415; 76705-TC; 80048-TC; 80076-TC; 81000-TC; 83690-TC; 83735-TC; 84100-TC; 84439-TC; 84443-TC; 84484-TC; 84702-TC; 84703-TC; 85025-TC; 85730-TC; 86850-TC; 87070-TC; 87075-TC; 87081-TC; 87186-TC; 88304-TC; 93307-TC; A6403; G0378; J0330; J0690; J1885; J2270; J2543; J2704; J2710; J3010; J3475; J3490; J7030; J7060